=== PATIENT | female | born 1980 | race Caucasian/White ===

== ENCOUNTER 2019-06-20 19:55 | Emergency (ER) | payer OTHER ==
[~2019-06-20] VITALS: Ht 167.6 cm; Wt 77.1 kg
[2019-06-20 20:00] VITALS: Ht 167.6 cm; Wt 77.1 kg
[2019-06-20] MEDS ORDERED: GLUCOPHAGE1000 MG PO (20:02)
[2019-06-20 20:43] LABS: EOSINOPHILS 4.2 % (0-7); HEMATOCRIT 45.7 % (36.0-48.0); HEMOGLOBIN 15.3 g/dL (12-16); IMMATURE GRANULOCYTES 0.5 % (0-5); LYMPHOCYTES 22.5 % (15-50); MCH 27.1 pg (26.0-34.0); MCHC 33.5 g/dL (31.0-37.0); MEAN PLATELET VOLUME 8.1 fL (7.4-10.4); MONOCYTES 7.9 % (2-11); NEUTROPHILS 63.9 % (40-80); PLATELET COUNT 264 10x3/uL (130-400); RBC 5.64 10x6/uL (4.00-5.40); RDW 13.1 % (11.5-14.5); WBC 9.1 10x3/uL (4.8-10.8)
[2019-06-20 20:51] LABS: CALC OSMOLALITY 280 mosm/kg (275-300); CALCIUM 9.3 mg/dL (8.5-10.1); CARBON DIOXIDE 25.8 mmol/L (21.0-32.0); CHLORIDE - SERUM 100 mmol/L (98-107); CREATININE - SERUM 0.8 mg/dL (0.6-1.3); GLUCOSE 216 mg/dL (74-106); POTASSIUM - SERUM 4.7 mmol/L (3.5-5.1); SODIUM 136 mmol/L (136-145); UREA NITROGEN 18 mg/dL (7-18); eGFR NON AFRICAN AMERICAN 85 mL/min (90-120)
[2019-06-20 20:57] LABS: ALBUMIN 4.3 g/dL (3.4-5.0); ALKALINE PHOSPHATASE 136 U/L (30-120); ALT (SGPT) 22 U/L (10-68); BILIRUBIN - TOTAL 0.41 mg/dL (0.2-1.3); MAGNESIUM - SERUM 1.6 mg/dL (1.8-2.4); PROTEIN - SERUM 7.8 g/dL (6.4-8.2)
[2019-06-20 21:02] LABS: HCG SERUM NEGATIVE (NEGATIVE)
[2019-06-20] MEDS ORDERED: FLUTICASONE PRO16 GM NASAL (21:38)
[2019-06-20 21:57] VITALS: BP 155/97
== END 2019-06-20 21:51 | disposition home or self-care (01) ==
LOC: D.ER 19:55
PROVIDERS: Family Medicine
DX: J30.9 Allergic rhinitis, unspecified (principal); E11.9 Type 2 diabetes mellitus without complications; Z79.84 Long term (current) use of oral hypoglycemic drugs